=== PATIENT | female | born 1975 | race Caucasian/White ===

== ENCOUNTER → 2020-12-15 | Day surgery (SDC) | payer OTHER ==
[~2020-12-15] VITALS: Ht 167.6 cm; Wt 136.1 kg
[~2020-12-15] MED LIST: ALLEGRA ALLERGY60 MG PO; IBUPROFEN IB200 MG PO; MELOXICAM7.5 MG PO; VITAMIN B-121000 MCG PO; VITAMIN D250 MCG PO
== END | disposition home or self-care (01) ==
LOC: OR 06:13
DX: G56.03 Carpal tunnel syndrome, bilateral upper limbs (principal); E66.01 Morbid (severe) obesity due to excess calories; Z98.84 Bariatric surgery status; Z68.42 Body mass index [BMI] 45.0-49.9, adult; Z79.899 Other long term (current) drug therapy
CPT/HCPCS: J1100; J1885; J2001; J2250; J2405; J2704; J3010; J7120

== ENCOUNTER → 2021-02-14 | Outpatient (CLI) | payer OTHER | LOC: EXRD 15:00 | DX: M79.604 Pain in right leg (principal) | CPT/HCPCS: 93971 ==